=== PATIENT | female | born 1950 | race Caucasian/White ===

== ENCOUNTER 2016-09-10 16:24 | Inpatient (IN) | payer MEDICARE, OTHER ==
[~2016-09-10] VITALS: Ht 162.6 cm; Wt 78.0 kg
[~2016-09-10 16:24] MED LIST: BACTDS PO; CEPH500C PO
[2016-09-10] MEDS ORDERED: CARV6.2579 PO (17:42)
[2016-09-10] MEDS ORDERED: LOSA50TA6 PO (17:42)
--- NOTE | 2016-09-10 18:15 | ERA ---
ER Documentation Chief Complaint Date/Time DATE: 09/10/16 TIME: 18:13 Chief Complaint SENT BY PMD FOR HYPERKALEMIA , CREATININE ELEVATION HPI Patient is a 65-year-old female who was sent from her primary care doctor's office for hyperkalemia and renal failure. Patient states that she is asymptomatic. She denies any chest pain, palpitations, shortness of breath, dysuria, hematuria, anuria. She denies any recent fever, nausea, vomiting, or itching. She states she is urinating without any complaints. The remainder review systems are negative. ROS All systems reviewed and are negative except as per history of present illness. Medications Home Meds Reported Medications Carvedilol* (Carvedilol*) 6.25 Mg Tablet, 6.25 MG PO BID, #60 TAB 09/10/16 Losartan Potassium* (Losartan Potassium*) 50 Mg Tablet, 50 MG PO DAILY, TAB 09/10/16 Discontinued Scripts Cephalexin* (Cephalexin*) 500 Mg Capsule, 500 MG PO Q6, #28 CAP Prov:SHANELLE MACIEL PA-C 01/21/16 Sulfamethoxazole-Trimethoprim* (Bactrim* DS) 800-160 Mg Tab, 1 TAB PO BID for 7 Days, TAB Prov:SHANELLE MACIEL PA-C 01/21/16 Allergies Allergies: Coded Allergies: No Known Allergy (Unverified , 09/10/16) PMhx/Soc Hx Alcohol Use: No Hx Substance Use: No Hx Tobacco Use: No Smoking Status: Never smoker FmHx Family History: coronary disease, diabetes Physical Exam Vitals Vital Signs Date Time Temp Pulse Resp B/P Pulse Ox O2 Delivery O2 Flow Rate FiO2 09/10/16 18:20 98.1 62 18 160/72 100 Room Air 09/10/16 17:57 Nasal Cannula 2 09/10/16 16:30 98.1 59 18 175/76 100 Physical Exam Const: [] Well-developed well-nourished female sitting on the bed no acute distress Head: Atraumatic normocephalic Eyes: Normal Conjunctiva ENT: Normal External Ears, Nose and Mouth. Neck: Full range of motion..~ No meningismus. Resp: Clear to auscultation bilaterally Cardio: Regular rate and rhythm, no murmurs Abd: Soft, non tender, non distended. Normal bowel sounds, no flank pain Skin: No petechiae or rashes Back: No midline or flank tenderness Ext: No cyanosis, or edema Neur: Awake and alert oriented 3, GCS of 15 Psych: Normal Mood and Affect Result Diagram: 09/10/16180409/10/161804 Results 24 hrs Laboratory Tests Test 09/10/16 18:05 09/10/16 18:20 Activated Partial Thromboplast Time 27.2Sec Alanine Aminotransferase (ALT/SGPT) 35IU/L Albumin 3.9g/dl Albumin/Globulin Ratio 1.25 Alkaline Phosphatase 99IU/L Anion Gap 17 Aspartate Amino Transf (AST/SGOT) 24IU/L Basophils # 0.010^3/ul Basophils % 0.3% Blood Urea Nitrogen 62mg/dl Calcium Level 8.5mg/dl Carbon Dioxide Level 18mmol/L Chloride Level 112mmol/L Creatinine 3.20mg/dl Direct Bilirubin 0.00mg/dl Eosinophils # 0.210^3/ul Eosinophils % 3.6% Globulin 3.10g/dl Glucose Level 107mg/dl Hematocrit 30.4% Hemoglobin 9.6g/dl INR International Normalized Ratio 0.94 Indirect Bilirubin 0.1mg/dl Lymphocytes # 1.410^3/ul Lymphocytes % 23.3% Mean Corpuscular Hemoglobin 29.6pg Mean Corpuscular Hemoglobin Concent 31.6g/dl Mean Corpuscular Volume 93.8fl Mean Platelet Volume 10.8fl Monocytes # 0.310^3/ul Monocytes % 4.3% Neutrophils # 3.910^3/ul Neutrophils % 68.2% Nucleated Red Blood Cells # 0.010^3/ul Nucleated Red Blood Cells % 0.0/100WBC Platelet Count 09891^3/UL Potassium Level 6.1mmol/L Prothrombin Time 12.6Sec Prothrombin Time Ratio 1.0 Red Blood Count 3.2410^6/ul Red Cell Distribution Width 13.8% Sodium Level 141mmol/L Total Bilirubin 0.1mg/dl Total Protein 7.0g/dl White Blood Count 5.810^3/ul Urine Bacteria FEW Urine Bilirubin NEGATIVE Urine Clarity CLEAR Urine Color LT. YELLOW Urine Epithelial Cells FEW Urine Glucose NEGATIVE% Urine Hemoglobin TRACE Urine Ketones NEGATIVE Urine Leukocyte Esterase NEGATIVE Urine Microscopic RBC 0-2/HPF Urine Microscopic WBC 0-2/HPF Urine Nitrite NEGATIVE Urine Specific [place] 1.020 Urine Total Protein 2+ Urine Urobilinogen 0.2 E.U./dL Urine pH 5.5 Current Medications Medications (Trade) Dose Ordered Sig/Candace Route PRN Reason Start Time Stop Time Status Last Admin Dose Admin Calcium Chloride (Ca Chloride 10% Syg) 1,000 mg ONCE ONCE IV 09/10/16 19:00 09/10/16 19:01 DC 09/10/16 19:06 Dextrose (D50w Syringe) 50 ml ONCE ONCE IV 09/10/16 19:00 09/10/16 19:01 DC 09/10/16 19:06 Insulin Human Regular (Humulin R) 10 unit ONCE ONCE IV 09/10/16 19:00 09/10/16 19:01 DC 09/10/16 19:08 Sodium Bicarbonate (Na Bicarb 8.4% Syg) 50 ml ONCE ONCE IV 09/10/16 19:00 09/10/16 19:01 DC 09/10/16 19:06 Sodium Polystyrene Sulfonate (Kayexalate) 30 gm ONCE ONCE PO 09/10/16 19:00 09/10/16 19:01 DC 09/10/16 19:06 Procedures/MDM Differential includes but is not limited to lab error, renal failure, hyperkalemia EKG: Rate/Rhythm: Normal sinus rhythm at 60 bpm QRS, ST, T-waves: No changes consistent w/ acute ischemia Impression: No evidence of ischemia or arrhythmia Patient's lab work has returned and is consistent with renal failure and hyperkalemia. I have ordered medications to treat her hyperkalemia temporarily. I have consulted Dr. Spencer to admit her to the hospital. 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
[2016-09-10 18:23] LABS: ADD SCAN DIFF NO; BASOPHILS % 0.3 % (0.0-2.0); EOSINOPHILS # 0.2 10^3/ul (0.0-0.5); EOSINOPHILS % 3.6 % (0.0-7.0); HEMATOCRIT 30.4 % (37.0-47.0); HEMOGLOBIN 9.6 g/dl (12.0-16.0); LYMPHOCYTES # 1.4 10^3/ul (0.8-2.9); LYMPHOCYTES % 23.3 % (15.0-51.0); MEAN CORPUSCULAR HEMOGLOBIN 29.6 pg (29.0-33.0); MEAN CORPUSCULAR HGB CONC 31.6 g/dl (32.0-37.0); MEAN CORPUSCULAR VOLUME 93.8 fl (82.0-101.0); MEAN PLATELET VOLUME 10.8 fl (7.4-10.4); MONOCYTE # 0.3 10^3/ul (0.3-0.9); MONOCYTES % 4.3 % (0.0-11.0); NEUTROPHIL # 3.9 10^3/ul (1.6-7.5); NEUTROPHILS % 68.2 % (39.0-77.0); PLATELET COUNT 144 10^3/UL (140-415); RED BLOOD COUNT 3.24 10^6/ul (4.20-5.40); RED CELL DISTRIBUTION WIDTH 13.8 % (11.5-14.5); WHITE BLOOD COUNT 5.8 10^3/ul (4.8-10.8)
[2016-09-10 18:30] LABS: ADD UMIC YES; URINE BILIRUBIN (Dip) NEGATIVE (NEGATIVE); URINE BLOOD (Dip) TRACE (NEGATIVE); URINE COLOR LT. YELLOW (YELLOW); URINE GLUCOSE (Dip) NEGATIVE (NEGATIVE); URINE KETONES (Dip) NEGATIVE (NEGATIVE); URINE LEUKOCYTE ESTERASE (Dip) NEGATIVE (NEGATIVE); URINE NITRITE (Dip) NEGATIVE (NEGATIVE); URINE TOTAL PROTEIN (Dip) 2+ (NEGATIVE); URINE UROBILINOGEN (Dip) 0.2 E.U./dL (0.1-1.0)
[2016-09-10 18:36] LABS: ALBUMIN 3.9 g/dl (3.3-4.9)
[2016-09-10 18:39] LABS: BILIRUBIN,INDIRECT 0.1 mg/dl (0-1.1); BILIRUBIN,TOTAL 0.1 mg/dl (0.2-1.3); CREATININE 3.2 mg/dl (0.44-1.00)
[2016-09-10 18:40] LABS: CALCIUM 8.5 mg/dl (8.4-10.2)
[2016-09-10 18:41] LABS: INR 0.94; PARTIAL THROMBOPLASTIN TIME 27.2 Sec (25.0-35.0); PROTIME 12.6 Sec (12.2-14.2)
[2016-09-10 18:43] LABS: ALBUMIN/GLOBULIN RATIO 1.25; POTASSIUM 6.1 mmol/L (3.5-5.1)
[2016-09-10 18:44] LABS: BACTERIA,URINE FEW; URINE RBCS 0-2 /HPF (0)
[2016-09-10] MEDS ORDERED: NA BICARBONATE 8.4% 50 ML SYG IV ONE (19:00)
[2016-09-10] MEDS ORDERED: NA POLYST SULFON 15 GM/60 ML BTL PO ONE ×2 (19:00→20:00)
[2016-09-10] MEDS ORDERED: CA CHLORIDE 10% 10 ML SYRINGE IV ONE (19:00)
[2016-09-10] MEDS ORDERED: INSULIN REGULAR, HUMAN 100 UNIT/1 ML 3ML VIAL IV ONE (19:00)
[2016-09-10] MEDS ORDERED: DEXTROSE 50% 50 ML SYRINGE IV ONE (19:00)
[2016-09-10] MEDS ORDERED: SOD CHLORIDE 0.9% 1,000 ML IV SCH (19:55)
[2016-09-10] MEDS ORDERED: NITROGLYCERIN (SL) 0.4 MG TAB SL PRN (20:00)
[2016-09-10] MEDS ORDERED: DOCUSATE SODIUM 100 MG CAP PO PRN (20:00)
[2016-09-10] MEDS ORDERED: morphine 2 MG INJ IV PRN (20:00)
[2016-09-10] MEDS ORDERED: ONDANSETRON 4 MG INJ IV PRN ×2 (20:00)
[2016-09-10] MEDS ORDERED: NACL 0.9% 3 ML SYG IV SCH (20:00)
[2016-09-10] MEDS ORDERED: hydrALAzine 20 MG INJ IV PRN (20:00)
[2016-09-10] MEDS ORDERED: LORAZEPAM 2 MG INJ IV PRN (20:00)
[2016-09-10] MEDS ORDERED: ACETAMINOPHEN 325 MG TAB PO PRN (20:00)
--- NOTE | 2016-09-10 20:07 | HP ---
Date/Time of Note Date/Time of Note DATE: 09/10/16 TIME: 19:55 Assessment/Plan VTE Prophylaxis VTE Prophylaxis Intervention: heparin Lines/Catheters [facility] Saline Lock Assessment/Plan Assessment/Plan 65 yo female with past medical history of essential hypertension, type II DM, who presents with acute hyperkalemia. 1. Hyperkalemia - 2/2 #2 - will admit the patient to telemetry, consult nephrology, give Kayexalate, recheck K+, monitor for arrhythmias 2. Acute renal failure - new onset - 2/2 to obstruction vs diabetic vs other - will obtain US kidneys, urine studies, renally adjust medications, avoid nephrotoxins 3. Essential hypertension - c/w coreg, hydralazine prn for sbp > 160, hold losartan 4. Type II DM - check hgab1c, ISS 5. Anemia of chronic disease - normocytic - check iron profile, stool occult blood, transfuse if hgb < 8 g/dL or symptomatic 6. GI ppx - pepcid po 7. DVT ppx - heparin answered all of her questions, as per clinical course. this history and physical took greater then 45 minutes to complete HPI/ROS Admit Date/Time Admit Date/Time 09/10/2016, 7:59 pm Hx of Present Illness 65 yo female with past medical history of essential hypertension, type II DM, who presents with acute hyperkalemia. The patient went to see her primary care physician, at [facility] - and laboratory studies completed. Subsequently received a phone call for abnormal labs, and was told to come to the ED here at [facility] for further evaluation and treatment. Otherwise denies any chest pain, shortness of breath, fevers/chills, nausea/vomiting/diarrhea/constipation, headaches, urinary/bowel irregularities, hematuria/dysuria/or increased frequency, no dizziness or other constitutional symptoms. ED course: received potassium lowering medications ROS 14 point review of systems completed, please refer to HPI for any positive findings PMH/Family/Social Past Medical History Medical History: diabetes, hypertension Past Surgical History right occipital abscess I and D Past Surgical Hx: cholecystectomy Family History Significant Family History: cancer (sister from ovarian CA) Social History Alcohol Use: none Smoking Status: Former smoker Drug Use: none Exam/Review of Systems Vital Signs Vitals Vital Signs Date Time Temp Pulse Resp B/P Pulse Ox O2 Delivery O2 Flow Rate FiO2 09/10/16 18:20 98.1 62 18 160/72 100 Room Air 09/10/16 17:57 2 Exam Exam Gen Tracee: NAD, AAOx4 HEENT: NC/AT, PERRLA, EOMI, no pharyngeal erythema, no tonsillar exudates, no lymphadenopathy, no JVD, no carotid bruits NECK: supple, no thyromegaly THORAX: symmetrical, no obvious deformities CV: S1S2, RRR, no M/G/R Lungs: CTAB no W/C/R/R Abd: soft, NT/ND, +BS, no rebound, no guarding, neg HSM EXT: no edema, no ecchymosis, no clubbing, FROM Neuro: CN II-XII grossly intact, no focal deficits Psych: good mentation, alert and oriented, good mood and affect Skin: C/D/I Labs Result Diagram: 09/10/16180409/10/16 180 NATALIA SIMMONS MD Sep 10, 2016 20:06
[2016-09-10] MEDS ORDERED: DEXTROSE 50% 50 ML SYRINGE IV PRN ×2 (20:30)
[2016-09-10] MEDS ORDERED: GLUCOSE GEL 15 GRAM TUBE BUCCAL PRN (20:30)
[2016-09-10] MEDS ORDERED: GLUCAGON 1 MG INJ IM PRN (20:30)
[2016-09-10] MEDS ORDERED: GLUCOSE GEL 15 GRAM TUBE PO PRN ×2 (20:30)
--- NOTE | 2016-09-10 20:38 | RADRPT ---
PROCEDURE: Retroperitoneal ultrasound. CLINICAL INDICATION: Acute renal failure TECHNIQUE: Valadez scale and color doppler ultrasound images of the retroperitoneum, kidneys, urinary bladder COMPARISON: No prior studies are available for comparison. FINDINGS: Right kidney 8.8 cm in length. Mild right cortical thinning measuring approximately 9 mm. Left kidney 9.2 cm in length. Mild left cortical thinning measuring approximately 9 mm. Renal echogenicity is upper limits of normal. No hydronephrosis. No renal calculi. 2.0 cm cyst of the left kidney is noted. Bladder: Undistended. IMPRESSION: Mild cortical thinning of both kidneys with borderline upper normal echogenicity suggestive of chron ic medical renal disease. No evidence of hydronephrosis. RPTAT: AADD .Guy Sargent MD, Date Time Electronically viewed and signed by .Guy Sargent MD, on 09/10/2016 20:37 .B/
--- NOTE | 2016-09-10 20:51 | RADRPT ---
PROCEDURE: XR Chest. CLINICAL INDICATION: Chest pain TECHNIQUE: AP Portable chest. COMPARISON: No pertinent prior examinations were submitted for comparison. FINDINGS: The cardiomediastinal silhouette is normal. The lungs are clear. The osseous structures are unrema rkable. IMPRESSION: No acute findings. RPTAT: HIKT .Jeffrey Wen MD, MD Date Time Electronically viewed and signed by .Jeffrey Wen MD, MD on 09/10/2016 20:51 .T/
[2016-09-10] MEDS ORDERED: FAMOTIDINE 20 MG TAB PO SCH (21:00)
[2016-09-10] MEDS: HEPARIN 5,000 UNIT/0.5 ML SYG SC SCH (22:13)
[2016-09-10 22:46] VITALS: TEMP 98.1
[2016-09-10 23:00] VITALS: Ht 162.6 cm; Wt 78.0 kg
[2016-09-10 23:22] VITALS: PULSE 60
[2016-09-11] VITALS (12 sets, daily range): BP systolic 113–163; BP diastolic 56–81; PULSE 53–72; RESP 16–18
[2016-09-11] MEDS: INSULIN ASPART [NOVOLOG] 3 ML PEN SC SCH ×5 (01:23→21:16)
[2016-09-11 06:24] LABS: ADD SCAN DIFF NO; BASOPHILS % 0.4 % (0.0-2.0); EOSINOPHILS # 0.2 10^3/ul (0.0-0.5); EOSINOPHILS % 3.8 % (0.0-7.0); HEMATOCRIT 28.6 % (37.0-47.0); HEMOGLOBIN 9.4 g/dl (12.0-16.0); LYMPHOCYTES # 1.5 10^3/ul (0.8-2.9); LYMPHOCYTES % 27.8 % (15.0-51.0); MEAN CORPUSCULAR HEMOGLOBIN 30.5 pg (29.0-33.0); MEAN CORPUSCULAR HGB CONC 32.9 g/dl (32.0-37.0); MEAN CORPUSCULAR VOLUME 92.9 fl (82.0-101.0); MEAN PLATELET VOLUME 10.6 fl (7.4-10.4); MONOCYTE # 0.2 10^3/ul (0.3-0.9); MONOCYTES % 4.6 % (0.0-11.0); NEUTROPHIL # 3.3 10^3/ul (1.6-7.5); NEUTROPHILS % 63.2 % (39.0-77.0); PLATELET COUNT 154 10^3/UL (140-415); RED BLOOD COUNT 3.08 10^6/ul (4.20-5.40); RED CELL DISTRIBUTION WIDTH 13.8 % (11.5-14.5); WHITE BLOOD COUNT 5.2 10^3/ul (4.8-10.8)
[2016-09-11 06:25] LABS: HAAIG REFLEX REFLEX FILED
[2016-09-11 06:58] LABS: POTASSIUM 4.5 mmol/L (3.5-5.1)
[2016-09-11 07:01] LABS: CREATININE 2.93 mg/dl (0.44-1.00)
[2016-09-11 07:02] LABS: CALCIUM 8.8 mg/dl (8.4-10.2)
--- NOTE | 2016-09-11 07:56 | CONS ---
DATE OF ADMISSION: 09/10/2016 DATE OF CONSULTATION: 09/10/2016 REASON FOR CONSULTATION: Acute kidney injury versus acute kidney injury on chronic kidney disease, acute hyperkalemia, potassium 6.1. TYPE OF CONSULTATION: Nephrology REFERRING PHYSICIAN: Marek Fierro MD HISTORY OF PRESENT ILLNESS: This is a 65-year-old female with a past medical history of hypertensio n, type 2 diabetes mellitus who was sent by her doctors because of having abnormal labs. The patien t is noted to have acute hyperkalemia with a potassium of 6.1. She also had acute kidney injury, ne w onset, which was thought secondary to obstruction versus diabetic nephropathy and the patient is g etting admitted for workup of acute kidney injury and acute hyperkalemia. The patient was hemodynam ically stable. She is getting admitted to the telemetry floor. So far the patient has had a blood pressure in the systolic 175/76. She received IV hydralazine. She has also received Kayexalate for hyperkalemia and the patient is getting admitted to the telemetry floor for further workup. REVIEW OF SYSTEMS: Positive for generalized weakness, fatigue, abnormal labs, sent by her primary c are doctor. PAST MEDICAL HISTORY: Notable for type 2 diabetes mellitus, hypertension, hyperlipidemia. PAST SURGICAL HISTORY: Right occipital abscess incision and drainage with a history of a cholecyste ctomy. FAMILY HISTORY: Significant for cancer. The patient's sister from ovarian cancer as pe r the patient. SOCIAL HISTORY: Former smoker. Currently, quit smoking. No alcohol or recreational drug use. PHYSICAL EXAMINATION: VITAL SIGNS: Temperature 98.1, heart rate 62, respiration 18, blood pressure 160/72, saturation 100 % on room air. GENERAL: Awake, alert, in no distress. HEENT: Normal. Oropharynx clear. NECK: Supple, no JVD, no lymphadenopathy. LUNGS: Clear to auscultation. No crackles, no wheezes. HEART: S1, S2, with regular rhythm, no murmur. ABDOMEN: Soft, nontender, nondistended. Bowel sounds are present. EXTREMITIES: No clubbing, cyanosis, or edema. NEUROLOGICAL: Nonfocal, intact. PSYCHIATRIC: Appropriate affect and mood. LABORATORY DATA/DIAGNOSTIC IMAGIN. WBC 5.8, hemoglobin 9.6, platelet count 144. Sodium 141, potassium 6.1, chloride 112, bicarbona te , BUN 62, creatinine 3.2, glucose 107, calcium 8.5. LFTs are normal. Albumin 3.9. Prothro mbin time 12.6, PTT 27.2, INR 0.94. Urinalysis shows trace hemoglobin, few bacteria, few epithelial cells, negative leukocyte esterase, total protein 2+. 2. Chest x-ray, 1 view, done in the emergency room shows negative. 3. Renal ultrasound done in the emergency room which revealed small size kidneys with mild cortical thinning of both kidneys consistent with medical renal disease. No evidence of hydronephrosis. IMPRESSION: This is a 65-year-old female with: 1. Acute kidney injury versus acute kidney injury on chronic kidney disease stage II to III seconda ry to diabetic nephropathy, etiology of acute kidney injury is likely secondary to obstruction versu s progression of diabetic nephropathy, versus prerenal azotemia. 2. Possible chronic kidney disease stage III secondary to diabetic nephropathy. 3. History of hypertension. 4. History of type 2 diabetes mellitus. 5. Metabolic acidosis likely secondary to chronic kidney disease. 6. Acute hyperkalemia secondary to worsening renal failure along with acute kidney injury. 7. Accelerated hypertension. PLAN: Thank you, Dr. Marek Fierro, for this consultation. The patient was seen in the emergency r oom. 1. She already received 2 doses of Kayexalate for hyperkalemia. At the time of my evaluation, the patient also received hydralazine for blood pressure control and her blood pressure came down to 160 /72. 2. Chronic kidney disease workup including urine protein, urine sodium, urine eosinophils and see l ipid panel with hemoglobin A1c has been ordered. 3. I will order a uric acid, CK, total hepatitis panel, and HIV, 4. The patient had a renal ultrasound done in the emergency room which is consistent with chronic r enal disease with small size kidneys. 5. The patient will need better glycemic control for her diabetes mellitus. 6. Hydralazine IV p.r.n. systolic blood pressure more than 150. 7. The patient was seen in the emergency room and she will be getting admitted to the telemetry shonna or by the hospitalist service. Once again, thank you, Dr. Marek Fierro, for this consultation. I will continue to follow this pat ient. Total time spent in the patient's evaluation making assessment and plan, updating the patient/family about the plan, communicating with the nursing staff is more than 60 minutes. Dictated By: PEDRO MARQUES MD, KP/TAB Conf#: [id number] DID#: [id number]
[2016-09-11 08:49] LABS: CREATINE KINASE 158 IU/L (23-200)
[2016-09-11 08:50] LABS: URIC ACID 7.7 mg/dl (3.1-7.9)
[2016-09-11 08:59] LABS: MAGNESIUM 1.7 mg/dl (1.7-2.5)
[2016-09-11] MEDS: ASPIRIN 81 MG TAB PO SCH (09:01)
[2016-09-11] MEDS: FAMOTIDINE 20 MG TAB PO SCH (09:02)
[2016-09-11] MEDS: HEPARIN 5,000 UNIT/0.5 ML SYG SC SCH ×2 (09:11→21:13)
[2016-09-11 09:30] LABS: THYROID STIMULATING HORMONE 1.45 MIU/L (0.465-4.680)
[2016-09-11 09:33] LABS: IRON 110 ug/dl (35-150)
[2016-09-11 09:41] LABS: HEPATITIS B CORE ANTIBODY NEGATIVE (NEGATIVE)
[2016-09-11 09:43] LABS: TOTAL IRON BINDING CAPACITY 370 ug/dl (241-421)
[2016-09-11 09:43] LABS: CK-MB 3.93 ng/ml (0.0-2.4)
[2016-09-11 09:46] LABS: TROPONIN-I 0.013 ng/ml (0.00-0.12)
--- NOTE | 2016-09-11 11:13 | PN ---
Date/Time of Note Date/Time of Note DATE: 09/11/16 TIME: 11:06 Assessment/Plan VTE Prophylaxis VTE Prophylaxis Intervention: heparin Lines/Catheters IV [facility] Saline Lock Urinary Cath still in place: No Assessment/Plan Assessment/Plan 65 yo female with past medical history of essential hypertension, type II DM, who presents with acute hyperkalemia. 1. Hyperkalemia - 2/2 #2 - resolved 2. Acute renal failure - new onset - 2/2 to obstruction vs diabetic vs other 3. Essential hypertension 4. Type II DM - Hba1c: 7.1 5. Anemia of kidney disease - normocytic - 6. Underlying CKD likely from DM and HTN nephropathy PLAN: * Continue current care plan and hydration * Continue current diabetic and hypertensive regimen * Continue to hold ACEi / ARBs / appreciate nephrology's prompt input / Renally dose all meds * Continue serial labs and close monitoring * Further evaluation and treatment will be based on clinical course PROPHYLAXIS: Pepcid / heparin Subjective 24 Hr Interval Summary Free Text/Dictation feels better no new complaints Exam/Review of Systems Vital Signs Vitals Vital Signs Date Time Temp Pulse Resp B/P Pulse Ox O2 Delivery O2 Flow Rate FiO2 09/11/16 08:41 97.6 67 18 113/56 98 09/10/16 22:46 Room Air 09/10/16 17:57 2 Intake and Output 09/10/16 09/10/16 09/11/16 15:00 23:00 07:00 Intake Total 700 ml Balance 700 ml Exam GENERAL: Patient is alert, oriented x 3, in no apparent distress; does not appear acutely or chronically ill. Patient is able to sit up unassisted.Patient makes good eye contact, is conversant, interactive, coherent. Patient appears calm and comfortable and is able to follow commands. HEENT: Oropharynx is clear. There is no carotid bruit, no masses. Patient's pupils are equal, round and reactive to light bilaterally. Extraocular motions are intact. There is no scleral icterus. There is no facial asymmetry. NECK: Supple. LUNGS: Clear to auscultation bilaterally with good air entry. No Wheezes or crackles. HEART: S1, S2. No murmur, gallops or rubs. Regular rate and rhythm. ABDOMEN: Soft, nontender. Normoactive bowel sounds. There are no stigmata of chronic liver disease. BACK: no costovertebral angle tenderness. GENITOURINARY: Deferred. EXTREMITIES: No edema. There is no cyanosis, clubbing. There are 2+ pulses bilaterally distally. NEUROLOGIC: The patient has no lateralizing signs. Cranial nerves II-XII are intact. SKIN: Otherwise, unremarkable. Results Result Diagram: 09/11/16 0557 09/11/16 0557 Results 24 hrs Laboratory Tests Test 09/10/16 18:05 09/10/16 18:20 09/11/16 01:18 09/11/16 05:57 Activated Partial Thromboplast Time 27.2 Alanine Aminotransferase (ALT/SGPT) 35 Albumin 3.9 Albumin/Globulin Ratio 1.25 Alkaline Phosphatase 99 Anion Gap 17 H 16 Aspartate Amino Transf (AST/SGOT) 24 Basophils # 0.0 0.0 Basophils % 0.3 0.4 Blood Urea Nitrogen 62 H 59 H Calcium Level 8.5 8.8 Carbon Dioxide Level 18 L 21 Chloride Level 112 H 112 H Creatinine 3.20 H 2.93 H Direct Bilirubin 0.00 Eosinophils # 0.2 0.2 Eosinophils % 3.6 3.8 Globulin 3.10 Glucose Level 107 113 Hematocrit 30.4 L 28.6 L Hemoglobin 9.6 L 9.4 L INR International Normalized Ratio 0.94 Indirect Bilirubin 0.1 Lymphocytes # 1.4 1.5 Lymphocytes % 23.3 27.8 Mean Corpuscular Hemoglobin 29.6 30.5 Mean Corpuscular Hemoglobin Concent 31.6 L 32.9 Mean Corpuscular Volume 93.8 92.9 Mean Platelet Volume 10.8 H 10.6 H Monocytes # 0.3 0.2 L Monocytes % 4.3 4.6 Neutrophils # 3.9 3.3 Neutrophils % 68.2 63.2 Nucleated Red Blood Cells # 0.0 0.0 Nucleated Red Blood Cells % 0.0 0.0 Platelet Count 144 154 Potassium Level 6.1 *H 4.5 Prothrombin Time 12.6 Prothrombin Time Ratio 1.0 Red Blood Count 3.24 L 3.08 L Red Cell Distribution Width 13.8 13.8 Sodium Level 141 144 Total Bilirubin 0.1 L Total Protein 7.0 White Blood Count 5.8 5.2 Urine Bacteria FEW Urine Bilirubin NEGATIVE Urine Clarity CLEAR Urine Color LT. YELLOW Urine Epithelial Cells FEW Urine Glucose NEGATIVE Urine Hemoglobin TRACE Urine Ketones NEGATIVE Urine Leukocyte Esterase NEGATIVE Urine Microscopic RBC 0-2 Urine Microscopic WBC 0-2 Urine Nitrite NEGATIVE Urine Specific [place] 1.020 Urine Total Protein 2+ H Urine Urobilinogen 0.2 E.U./dL Urine pH 5.5 Bedside Glucose 203 Cholesterol Level 153 Cholesterol/HDL Ratio 2.0 Creatine Kinase 158 Creatine Kinase Index 2.5 Creatinine Kinase MB (Mass) 3.93 H HDL Cholesterol 75 HIV (1&2) Antibody Pending Hemoglobin A1c 7.1 H Hepatitis B Core Total Antibody NEGATIVE Hepatitis B Surface Antigen Pending Hepatitis C Antibody Pending LDL Cholesterol, Calculated 59 Magnesium Level 1.7 Thyroid Stimulating Hormone (TSH) 1.450 Triglycerides Level 94 Troponin I 0.013 Uric Acid 7.7 Test 09/11/16 06:25 09/11/16 07:56 Iron Level 110 Osmolality 313 H Percent Iron Saturation 30 Total Iron Binding Capacity 370 Bedside Glucose 105 Medications Medications Current Medications Lorazepam (Ativan) 0.5 mg Q6H PRN IV ANXIETY; Start 09/10/16 at 20:00 Ondansetron HCl (Zofran Inj) 4 mg Q6H PRN IV NAUSEA AND/OR VOMITING; Start at 20:00 Aspirin (Aspirin) 81 mg DAILY PO Last administered on 09/11/16 09:01; Admin Dose 81 MG; Start 09/11/16 at 09:00 Nitroglycerin (Nitroglycerin (Sl Tab) 0.4 Mg) 1 tab Q5M PRN SL CHEST PAIN; Start 09/10/16 at 20:00 Acetaminophen (Tylenol Tab) 650 mg Q6H PRN PO PAIN LEVEL 1-3 OR FEVER; Start at 20:00 Morphine Sulfate (morphine) 2 mg Q4H PRN IV PAIN LEVEL 7-10; Start 09/10/16 at 20:00 Docusate Sodium (Colace) 100 mg Q12H PRN PO CONSTIPATION; Start 09/10/16 at 20: 00 Heparin Sodium (Porcine) (Heparin (5000 Units/0.5 ml)) 5,000 unit Q12 SC Last administered on 09/11/16 09:11; Admin Dose 5,000 UNIT; Start 09/10/16 at 21:00 Carvedilol (Coreg) 6.25 mg BID PO Last administered on 09/11/16 09:02; Admin Dose 6.25 MG; Start 09/10/16 at 21:00 Hydralazine HCl (Apresoline) 10 mg Q6H PRN IV sbp > 160 Last administered on 01:19; Admin Dose 10 MG; Start 09/10/16 at 20:00 Miscellaneous Information 1 ea NOTE XX ; Start 09/10/16 at 20:30 Glucose (Glutose) 15 gm Q15M PRN PO DECREASED GLUCOSE; Start 09/10/16 at 20:30 Glucose (Glutose) 22.5 gm Q15M PRN PO DECREASED GLUCOSE; Start 09/10/16 at 20: 30 Dextrose (D50w Syringe) 25 ml Q15M PRN IV DECREASED GLUCOSE; Start 09/10/16 at 20:30 Dextrose (D50w Syringe) 50 ml Q15M PRN IV DECREASED GLUCOSE; Start 09/10/16 at 20:30 Glucagon (Glucagen) 1 mg Q15M PRN IM DECREASED GLUCOSE; Start 09/10/16 at 20:30 Glucose (Glutose) 15 gm Q15M PRN BUCCAL DECREASED GLUCOSE; Start 09/10/16 at 20 :30 Famotidine (Pepcid) 20 mg DAILY PO Last administered on 09/11/16 09:02; Admin Dose 20 MG; Start 09/11/16 at 09:00 Procedures Procedures PROCEDURE: Retroperitoneal ultrasound. CLINICAL INDICATION: Acute renal failure TECHNIQUE: Valadez scale and color doppler ultrasound images of the retroperitoneum, kidneys, urinary bladder COMPARISON: No prior studies are available for comparison. FINDINGS: Right kidney 8.8 cm in length. Mild right cortical thinning measuring approximately 9 mm. Left kidney 9.2 cm in length. Mild left cortical thinning measuring approximately 9 mm. Renal echogenicity is upper limits of normal. No hydronephrosis. No renal calculi. 2.0 cm cyst of the left kidney is noted. Bladder: Undistended. IMPRESSION: Mild cortical thinning of both kidneys with borderline upper normal echogenicity suggestive of chronic medical renal disease. No evidence of hydronephrosis. RPTAT: AADD .Guy Sargent MD, MD Date Time Electronically viewed and signed by .Guy Sargent MD, on 09/10/2016 20:37 .Lidia/ MAC HEARD Sep 11, 2016 11:13
[2016-09-11] MEDS: ACETAMINOPHEN 325 MG TAB PO PRN (11:18)
--- NOTE | 2016-09-11 12:00 | CONS ---
Date/Time of Note Date/Time of Note DATE: 09/11/16 TIME: 11:58 Assessment/Plan Assessment/Plan Additional Assessment/Plan 1. Acute kidney injury on chronic kidney disease stage II to III secondary to diabetic nephropathy, etiology of acute kidney injury is likely secondary to obstruction versus progression of diabetic nephropathy, versus prerenal azotemia. 2. Possible chronic kidney disease stage III secondary to diabetic nephropathy. 3. History of hypertension. 4. History of type 2 diabetes mellitus. 5. Metabolic acidosis likely secondary to chronic kidney disease. 6. Acute hyperkalemia secondary to worsening renal failure along with acute kidney injury. 7. Accelerated hypertension. PLAN: BUN/Cr slighty improved,K normal BP stable will follow up Renal US showed medical renal disease Consultation Date/Type/Reason Admit Date/Time Sep 10, 2016 at 20:01 Initial Consult Date Aug Type of Consultation: NEPHROLOGY Reason for Consultation Acute kidney injury, Hyperkalemia Referring Provider: NATALIA SIMMONS MD 24 HR Interval Summary Free Text/Dictation S/p kayexalate yesterday, k Normal, Cr slightly improved with IVF Exam/Review of Systems Vital Signs Vitals Vital Signs Date Time Temp Pulse Resp B/P Pulse Ox O2 Delivery O2 Flow Rate FiO2 09/11/16 11:32 98.0 63 18 125/60 97 09/10/16 22:46 Room Air 09/10/16 17:57 2 Intake and Output 09/10/16 09/10/16 09/11/16 14:59 22:59 06:59 Intake Total 700 ml Balance 700 ml Exam GENERAL: Awake, alert, in no distress. HEENT: Normal. Oropharynx clear. NECK: Supple, no JVD, no lymphadenopathy. LUNGS: Clear to auscultation. No crackles, no wheezes. HEART: S1, S2, with regular rhythm, no murmur. ABDOMEN: Soft, nontender, nondistended. Bowel sounds are present. EXTREMITIES: No clubbing, cyanosis, or edema. NEUROLOGICAL: Nonfocal, intact. PSYCHIATRIC: Appropriate affect and mood. Results Result Diagram: 09/11/16 0557 09/11/16 0557 Results 24 hrs Laboratory Tests Test 09/10/16 18:05 09/10/16 18:20 09/11/16 01:18 09/11/16 05:57 Activated Partial Thromboplast Time 27.2 Alanine Aminotransferase (ALT/SGPT) 35 Albumin 3.9 Albumin/Globulin Ratio 1.25 Alkaline Phosphatase 99 Anion Gap 17 H 16 Aspartate Amino Transf (AST/SGOT) 24 Basophils # 0.0 0.0 Basophils % 0.3 0.4 Blood Urea Nitrogen 62 H 59 H Calcium Level 8.5 8.8 Carbon Dioxide Level 18 L 21 Chloride Level 112 H 112 H Creatinine 3.20 H 2.93 H Direct Bilirubin 0.00 Eosinophils # 0.2 0.2 Eosinophils % 3.6 3.8 Globulin 3.10 Glucose Level 107 113 Hematocrit 30.4 L 28.6 L Hemoglobin 9.6 L 9.4 L INR International Normalized Ratio 0.94 Indirect Bilirubin 0.1 Lymphocytes # 1.4 1.5 Lymphocytes % 23.3 27.8 Mean Corpuscular Hemoglobin 29.6 30.5 Mean Corpuscular Hemoglobin Concent 31.6 L 32.9 Mean Corpuscular Volume 93.8 92.9 Mean Platelet Volume 10.8 H 10.6 H Monocytes # 0.3 0.2 L Monocytes % 4.3 4.6 Neutrophils # 3.9 3.3 Neutrophils % 68.2 63.2 Nucleated Red Blood Cells # 0.0 0.0 Nucleated Red Blood Cells % 0.0 0.0 Platelet Count 144 154 Potassium Level 6.1 *H 4.5 Prothrombin Time 12.6 Prothrombin Time Ratio 1.0 Red Blood Count 3.24 L 3.08 L Red Cell Distribution Width 13.8 13.8 Sodium Level 141 144 Total Bilirubin 0.1 L Total Protein 7.0 White Blood Count 5.8 5.2 Urine Bacteria FEW Urine Bilirubin NEGATIVE Urine Clarity CLEAR Urine Color LT. YELLOW Urine Epithelial Cells FEW Urine Glucose NEGATIVE Urine Hemoglobin TRACE Urine Ketones NEGATIVE Urine Leukocyte Esterase NEGATIVE Urine Microscopic RBC 0-2 Urine Microscopic WBC 0-2 Urine Nitrite NEGATIVE Urine Specific [place] 1.020 Urine Total Protein 2+ H Urine Urobilinogen 0.2 E.U./dL Urine pH 5.5 Bedside Glucose 203 Cholesterol Level 153 Cholesterol/HDL Ratio 2.0 Creatine Kinase 158 Creatine Kinase Index 2.5 Creatinine Kinase MB (Mass) 3.93 H HDL Cholesterol 75 HIV (1&2) Antibody Pending Hemoglobin A1c 7.1 H Hepatitis B Core Total Antibody NEGATIVE Hepatitis B Surface Antigen Pending Hepatitis C Antibody Pending LDL Cholesterol, Calculated 59 Magnesium Level 1.7 Thyroid Stimulating Hormone (TSH) 1.450 Triglycerides Level 94 Troponin I 0.013 Uric Acid 7.7 Test 09/11/16 06:25 09/11/16 07:56 09/11/16 11:16 Iron Level 110 Osmolality 313 H Percent Iron Saturation 30 Total Iron Binding Capacity 370 Bedside Glucose 105 174 Medications Medications Current Medications Lorazepam (Ativan) 0.5 mg Q6H PRN IV ANXIETY; Start 09/10/16 at 20:00 Ondansetron HCl (Zofran Inj) 4 mg Q6H PRN IV NAUSEA AND/OR VOMITING; Start at 20:00 Aspirin (Aspirin) 81 mg DAILY PO Last administered on 09/11/16 09:01; Admin Dose 81 MG; Start 09/11/16 at 09:00 Nitroglycerin (Nitroglycerin (Sl Tab) 0.4 Mg) 1 tab Q5M PRN SL CHEST PAIN; Start 09/10/16 at 20:00 Acetaminophen (Tylenol Tab) 650 mg Q6H PRN PO PAIN LEVEL 1-3 OR FEVER Last administered on 09/11/16 11:18; Admin Dose 650 MG; Start 09/10/16 at 20:00 Morphine Sulfate (morphine) 2 mg Q4H PRN IV PAIN LEVEL 7-10; Start 09/10/16 at 20:00 Heparin Sodium (Porcine) (Heparin (5000 Units/0.5 ml)) 5,000 unit Q12 SC Last administered on 09/11/16 09:11; Admin Dose 5,000 UNIT; Start 09/10/16 at 21:00 Carvedilol (Coreg) 6.25 mg BID PO Last administered on 09/11/16 09:02; Admin Dose 6.25 MG; Start 09/10/16 at 21:00 Hydralazine HCl (Apresoline) 10 mg Q6H PRN IV sbp > 160 Last administered on 01:19; Admin Dose 10 MG; Start 09/10/16 at 20:00 Miscellaneous Information 1 ea NOTE XX ; Start 09/10/16 at 20:30 Glucose (Glutose) 15 gm Q15M PRN PO DECREASED GLUCOSE; Start 09/10/16 at 20:30 Glucose (Glutose) 22.5 gm Q15M PRN PO DECREASED GLUCOSE; Start 09/10/16 at 20: 30 Dextrose (D50w Syringe) 25 ml Q15M PRN IV DECREASED GLUCOSE; Start 09/10/16 at 20:30 Dextrose (D50w Syringe) 50 ml Q15M PRN IV DECREASED GLUCOSE; Start 09/10/16 at 20:30 Glucagon (Glucagen) 1 mg Q15M PRN IM DECREASED GLUCOSE; Start 09/10/16 at 20:30 Glucose (Glutose) 15 gm Q15M PRN BUCCAL DECREASED GLUCOSE; Start 09/10/16 at 20 :30 Famotidine (Pepcid) 20 mg DAILY PO Last administered on 09/11/16 09:02; Admin Dose 20 MG; Start 09/11/16 at 09:00 Docusate Sodium (Colace) 100 mg Q12H PO ; Start 09/11/16 at 20:00 PEDRO MARQUES MD Sep 11, 2016 12:00
[2016-09-11] MEDS: DOCUSATE SODIUM 100 MG CAP PO SCH (21:11)
[2016-09-12] VITALS (12 sets, daily range): BP systolic 139–191; BP diastolic 57–78; PULSE 51–72; RESP 16–18
[2016-09-12 07:23] LABS: ADD SCAN DIFF NO
[2016-09-12 07:32] LABS: BASOPHILS % 0.5 % (0.0-2.0); EOSINOPHILS # 0.2 10^3/ul (0.0-0.5); EOSINOPHILS % 3.7 % (0.0-7.0); HEMATOCRIT 27.4 % (37.0-47.0); HEMOGLOBIN 8.7 g/dl (12.0-16.0); LYMPHOCYTES # 1.7 10^3/ul (0.8-2.9); LYMPHOCYTES % 38.8 % (15.0-51.0); MEAN CORPUSCULAR HEMOGLOBIN 29.8 pg (29.0-33.0); MEAN CORPUSCULAR HGB CONC 31.8 g/dl (32.0-37.0); MEAN CORPUSCULAR VOLUME 93.8 fl (82.0-101.0); MEAN PLATELET VOLUME 11.2 fl (7.4-10.4); MONOCYTE # 0.2 10^3/ul (0.3-0.9); MONOCYTES % 5.1 % (0.0-11.0); NEUTROPHIL # 2.3 10^3/ul (1.6-7.5); NEUTROPHILS % 51.9 % (39.0-77.0); PLATELET COUNT 136 10^3/UL (140-415); RED BLOOD COUNT 2.92 10^6/ul (4.20-5.40); RED CELL DISTRIBUTION WIDTH 13.9 % (11.5-14.5); WHITE BLOOD COUNT 4.3 10^3/ul (4.8-10.8)
[2016-09-12 07:45] LABS: ALBUMIN 3.6 g/dl (3.3-4.9)
[2016-09-12 07:46] LABS: POTASSIUM 4.6 mmol/L (3.5-5.1)
[2016-09-12 07:48] LABS: CREATININE 3.23 mg/dl (0.44-1.00)
[2016-09-12 07:49] LABS: CALCIUM 8.3 mg/dl (8.4-10.2); MAGNESIUM 1.7 mg/dl (1.7-2.5); PHOSPHORUS 5.8 mg/dl (2.5-4.9)
[2016-09-12] MEDS: DOCUSATE SODIUM 100 MG CAP PO SCH ×2 (08:03→21:29)
[2016-09-12] MEDS: FAMOTIDINE 20 MG TAB PO SCH (08:04)
[2016-09-12] MEDS: ASPIRIN 81 MG TAB PO SCH (08:04)
[2016-09-12] MEDS: INSULIN ASPART [NOVOLOG] 3 ML PEN SC SCH ×4 (08:07→21:00)
[2016-09-12] MEDS: HEPARIN 5,000 UNIT/0.5 ML SYG SC SCH ×2 (08:21→21:32)
--- NOTE | 2016-09-12 11:28 | CONS ---
Date/Time of Note Date/Time of Note DATE: 09/12/16 TIME: 11:20 Assessment/Plan Assessment/Plan Additional Assessment/Plan 1. Acute kidney injury on chronic kidney disease stage II to III secondary to diabetic nephropathy, etiology of acute kidney injury is likely secondary to obstruction versus progression of diabetic nephropathy, versus prerenal azotemia. 2. Possible chronic kidney disease stage III secondary to diabetic nephropathy. 3. History of hypertension. 4. History of type 2 diabetes mellitus. 5. Metabolic acidosis likely secondary to chronic kidney disease. 6. Acute hyperkalemia secondary to worsening renal failure along with acute kidney injury. 7. Accelerated hypertension. PLAN: BUN/Cr slightly get worse ,K normal diet has been changed to renal diet will give 0.9 Ns at 70 cc/hr x 1 liter then reassess Calcium acetate 667mg TID with meal Renal US showed medical renal disease will follow up discussed with patient at bedside Consultation Date/Type/Reason Admit Date/Time Sep 10, 2016 at 20:01 Initial Consult Date Aug Type of Consultation: NEPHROLOGY Reason for Consultation acute kidney injury, Hyperkalemia Referring Provider: NATALIA SIMMONS MD 24 HR Interval Summary Free Text/Dictation Pt remained stable, BUN/Cr get worse Exam/Review of Systems Vital Signs Vitals Vital Signs Date Time Temp Pulse Resp B/P Pulse Ox O2 Delivery O2 Flow Rate FiO2 09/12/16 08:12 56 09/12/16 07:33 98.2 18 139/67 98 09/12/16 04:00 Room Air 09/10/16 17:57 2 Intake and Output 09/11/16 09/11/16 09/12/16 15:00 23:00 07:00 Intake Total 700 ml 400 ml Balance 700 ml 400 ml Exam GENERAL: Awake, alert, in no distress. HEENT: Normal. Oropharynx clear. NECK: Supple, no JVD, no lymphadenopathy. LUNGS: Clear to auscultation. No crackles, no wheezes. HEART: S1, S2, with regular rhythm, no murmur. ABDOMEN: Soft, nontender, nondistended. Bowel sounds are present. EXTREMITIES: No clubbing, cyanosis, or edema. NEUROLOGICAL: Nonfocal, intact. PSYCHIATRIC: Appropriate affect and mood. Results Result Diagram: 09/12/16 0603 09/12/16 0603 Results 24 hrs Laboratory Tests Test 09/11/16 17:42 09/11/16 20:40 09/12/16 02:00 09/12/16 06:03 Bedside Glucose 196 207 167 Albumin 3.6 Anion Gap 17 H Basophils # 0.0 Basophils % 0.5 Blood Urea Nitrogen 64 H Calcium Level 8.3 L Carbon Dioxide Level 21 Chloride Level 110 Creatinine 3.23 H Eosinophils # 0.2 Eosinophils % 3.7 Glucose Level 118 Hematocrit 27.4 L Hemoglobin 8.7 L Lymphocytes # 1.7 Lymphocytes % 38.8 Magnesium Level 1.7 Mean Corpuscular Hemoglobin 29.8 Mean Corpuscular Hemoglobin Concent 31.8 L Mean Corpuscular Volume 93.8 Mean Platelet Volume 11.2 H Monocytes # 0.2 L Monocytes % 5.1 Neutrophils # 2.3 Neutrophils % 51.9 Nucleated Red Blood Cells # 0.0 Nucleated Red Blood Cells % 0.0 Phosphorus Level 5.8 H Platelet Count 136 L Potassium Level 4.6 Red Blood Count 2.92 L Red Cell Distribution Width 13.9 Sodium Level 143 White Blood Count 4.3 L Test 09/12/16 07:59 Bedside Glucose 150 Medications Medications Current Medications Lorazepam (Ativan) 0.5 mg Q6H PRN IV ANXIETY; Start 09/10/16 at 20:00 Ondansetron HCl (Zofran Inj) 4 mg Q6H PRN IV NAUSEA AND/OR VOMITING; Start at 20:00 Aspirin (Aspirin) 81 mg DAILY PO Last administered on 09/12/16 08:04; Admin Dose 81 MG; Start 09/11/16 at 09:00 Nitroglycerin (Nitroglycerin (Sl Tab) 0.4 Mg) 1 tab Q5M PRN SL CHEST PAIN; Start 09/10/16 at 20:00 Acetaminophen (Tylenol Tab) 650 mg Q6H PRN PO PAIN LEVEL 1-3 OR FEVER Last administered on 09/11/16 11:18; Admin Dose 650 MG; Start 09/10/16 at 20:00 Morphine Sulfate (morphine) 2 mg Q4H PRN IV PAIN LEVEL 7-10; Start 09/10/16 at 20:00 Heparin Sodium (Porcine) (Heparin (5000 Units/0.5 ml)) 5,000 unit Q12 SC Last administered on 09/12/16 08:21; Admin Dose 5,000 UNIT; Start 09/10/16 at 21:00 Carvedilol (Coreg) 6.25 mg BID PO Last administered on 09/12/16 08:04; Admin Dose 6.25 MG; Start 09/10/16 at 21:00 Hydralazine HCl (Apresoline) 10 mg Q6H PRN IV sbp > 160 Last administered on 01:19; Admin Dose 10 MG; Start 09/10/16 at 20:00 Miscellaneous Information 1 ea NOTE XX ; Start 09/10/16 at 20:30 Glucose (Glutose) 15 gm Q15M PRN PO DECREASED GLUCOSE; Start 09/10/16 at 20:30 Glucose (Glutose) 22.5 gm Q15M PRN PO DECREASED GLUCOSE; Start 09/10/16 at 20: 30 Dextrose (D50w Syringe) 25 ml Q15M PRN IV DECREASED GLUCOSE; Start 09/10/16 at 20:30 Dextrose (D50w Syringe) 50 ml Q15M PRN IV DECREASED GLUCOSE; Start 09/10/16 at 20:30 Glucagon (Glucagen) 1 mg Q15M PRN IM DECREASED GLUCOSE; Start 09/10/16 at 20:30 Glucose (Glutose) 15 gm Q15M PRN BUCCAL DECREASED GLUCOSE; Start 09/10/16 at 20 :30 Famotidine (Pepcid) 20 mg DAILY PO Last administered on 09/12/16 08:04; Admin Dose 20 MG; Start 09/11/16 at 09:00 Docusate Sodium (Colace) 100 mg Q12H PO Last administered on 09/12/16 08:03; Admin Dose 100 MG; Start 09/11/16 at 20:00 PEDRO MARQUES MD Sep 12, 2016 11:28
[2016-09-12] MEDS ORDERED: SOD CHLORIDE 0.9% 1,000 ML IV SCH (11:30)
[2016-09-12] MEDS: CALCIUM ACETATE 667 MG CAP PO SCH ×2 (11:45→17:30)
--- NOTE | 2016-09-12 12:13 | PN ---
Date/Time of Note Date/Time of Note DATE: 09/12/16 TIME: 12:10 Assessment/Plan VTE Prophylaxis VTE Prophylaxis Intervention: heparin Lines/Catheters IV [facility] Urinary Cath still in place: No Assessment/Plan Chief Complaint/Hosp Course Assessment/Plan 1. Hyperkalemia -likely secondary to acute on chronic renal insufficiency, resolved, continue to monitor 2. Acute on chronic renal failure -likely diabetic nephropathy , nephrology has been consulted, with worsening of renal panel since yesterday 3. Essential hypertension -moderately controlled, continue medical management 4. Type II DM - Hba1c: 7.1, continue insulin sliding scale, low-carb diet, placed the patient on Januvia, not a candidate for metformin secondary to renal insufficiency 5. Anemia of kidney disease - normocytic - 6. Underlying CKD likely from DM and HTN nephropathy, Continue to hold ACEi / ARBs / appreciate nephrology's prompt input / Renally dose all meds PLAN: * Continue current care plan and hydration * Continue current diabetic and hypertensive regimen * Further evaluation and treatment will be based on clinical course PROPHYLAXIS: Pepcid / heparin Problems: Subjective 24 Hr Interval Summary Free Text/Dictation Patient denies of any chest pain or shortness of breath No nausea vomiting diarrhea Tolerating oral intake Creatinine/renal panel has worsened since yesterday Exam/Review of Systems Vital Signs Vitals Vital Signs Date Time Temp Pulse Resp B/P Pulse Ox O2 Delivery O2 Flow Rate FiO2 09/12/16 11:33 98.0 68 18 155/57 98 09/12/16 04:00 Room Air 09/10/16 17:57 2 Intake and Output 09/11/16 09/11/16 09/12/16 15:00 23:00 07:00 Intake Total 700 ml 400 ml Balance 700 ml 400 ml Exam General: The patient is well-developed, Not in acute distress. HEENT: Atraumatic, normocephalic. The pupils are equal and round . Neck: Supple with full range of motion. Chest: Normal expansion of the thorax during inspiration Lungs: Clear to auscultation bilaterally Heart: Normal S1-S2, Regular rhythm and rate. Abdomen: Soft , nontender, nondistended , bowel sounds are present. Extremities: Normal to inspection, no edema no cyanosis Neurologic: Normal mental status,The patient is awake, alert and oriented . Results Result Diagram: 09/12/16 0603 09/12/16 0603 Results 24 hrs Laboratory Tests Test 09/11/16 17:42 09/11/16 20:40 09/12/16 02:00 09/12/16 06:03 Bedside Glucose 196 207 167 Albumin 3.6 Anion Gap 17 H Basophils # 0.0 Basophils % 0.5 Blood Urea Nitrogen 64 H Calcium Level 8.3 L Carbon Dioxide Level 21 Chloride Level 110 Creatinine 3.23 H Eosinophils # 0.2 Eosinophils % 3.7 Glucose Level 118 Hematocrit 27.4 L Hemoglobin 8.7 L Lymphocytes # 1.7 Lymphocytes % 38.8 Magnesium Level 1.7 Mean Corpuscular Hemoglobin 29.8 Mean Corpuscular Hemoglobin Concent 31.8 L Mean Corpuscular Volume 93.8 Mean Platelet Volume 11.2 H Monocytes # 0.2 L Monocytes % 5.1 Neutrophils # 2.3 Neutrophils % 51.9 Nucleated Red Blood Cells # 0.0 Nucleated Red Blood Cells % 0.0 Phosphorus Level 5.8 H Platelet Count 136 L Potassium Level 4.6 Red Blood Count 2.92 L Red Cell Distribution Width 13.9 Sodium Level 143 White Blood Count 4.3 L Test 09/12/16 07:59 09/12/16 11:44 Bedside Glucose 150 248 H Medications Medications Current Medications Lorazepam (Ativan) 0.5 mg Q6H PRN IV ANXIETY; Start 09/10/16 at 20:00 Ondansetron HCl (Zofran Inj) 4 mg Q6H PRN IV NAUSEA AND/OR VOMITING; Start at 20:00 Aspirin (Aspirin) 81 mg DAILY PO Last administered on 09/12/16 08:04; Admin Dose 81 MG; Start 09/11/16 at 09:00 Nitroglycerin (Nitroglycerin (Sl Tab) 0.4 Mg) 1 tab Q5M PRN SL CHEST PAIN; Start 09/10/16 at 20:00 Acetaminophen (Tylenol Tab) 650 mg Q6H PRN PO PAIN LEVEL 1-3 OR FEVER Last administered on 09/11/16 11:18; Admin Dose 650 MG; Start 09/10/16 at 20:00 Morphine Sulfate (morphine) 2 mg Q4H PRN IV PAIN LEVEL 7-10; Start 09/10/16 at 20:00 Heparin Sodium (Porcine) (Heparin (5000 Units/0.5 ml)) 5,000 unit Q12 SC Last administered on 09/12/16 08:21; Admin Dose 5,000 UNIT; Start 09/10/16 at 21:00 Carvedilol (Coreg) 6.25 mg BID PO Last administered on 09/12/16 08:04; Admin Dose 6.25 MG; Start 09/10/16 at 21:00 Hydralazine HCl (Apresoline) 10 mg Q6H PRN IV sbp > 160 Last administered on 01:19; Admin Dose 10 MG; Start 09/10/16 at 20:00 Miscellaneous Information 1 ea NOTE XX ; Start 09/10/16 at 20:30 Glucose (Glutose) 15 gm Q15M PRN PO DECREASED GLUCOSE; Start 09/10/16 at 20:30 Glucose (Glutose) 22.5 gm Q15M PRN PO DECREASED GLUCOSE; Start 09/10/16 at 20: 30 Dextrose (D50w Syringe) 25 ml Q15M PRN IV DECREASED GLUCOSE; Start 09/10/16 at 20:30 Dextrose (D50w Syringe) 50 ml Q15M PRN IV DECREASED GLUCOSE; Start 09/10/16 at 20:30 Glucagon (Glucagen) 1 mg Q15M PRN IM DECREASED GLUCOSE; Start 09/10/16 at 20:30 Glucose (Glutose) 15 gm Q15M PRN BUCCAL DECREASED GLUCOSE; Start 09/10/16 at 20 :30 Famotidine (Pepcid) 20 mg DAILY PO Last administered on 09/12/16 08:04; Admin Dose 20 MG; Start 09/11/16 at 09:00 Docusate Sodium 100 mg 100 mg Q12H PO Last administered on 09/12/16 08:03; Admin Dose 100 MG; Start 09/11/16 at 20:00 Sodium Chloride (NS) 1,000 ml @ 70 mls/hr [id number] IV Last administered on 09/12 11:45; Admin Dose 70 MLS/HR; Start 09/12/16 at 11:30; Stop 09/13/16 at 01: 47 SRI WEBSTER MD Sep 12, 2016 12:13
[2016-09-12] MEDS: ACETAMINOPHEN 325 MG TAB PO PRN (17:40)
[2016-09-13] VITALS (7 sets, daily range): BP systolic 160–184; BP diastolic 70–77; PULSE 49–61; RESP 18
[2016-09-13 06:52] LABS: ADD SCAN DIFF NO
[2016-09-13 07:05] LABS: BASOPHILS % 0.3 % (0.0-2.0); EOSINOPHILS # 0.2 10^3/ul (0.0-0.5); HEMATOCRIT 25.6 % (37.0-47.0); HEMOGLOBIN 8.4 g/dl (12.0-16.0); LYMPHOCYTES # 1.3 10^3/ul (0.8-2.9); LYMPHOCYTES % 32.2 % (15.0-51.0); MEAN CORPUSCULAR HEMOGLOBIN 30.3 pg (29.0-33.0); MEAN CORPUSCULAR HGB CONC 32.8 g/dl (32.0-37.0); MEAN CORPUSCULAR VOLUME 92.4 fl (82.0-101.0); MEAN PLATELET VOLUME 11.2 fl (7.4-10.4); MONOCYTE # 0.2 10^3/ul (0.3-0.9); NEUTROPHIL # 2.3 10^3/ul (1.6-7.5); NEUTROPHILS % 58.2 % (39.0-77.0); PLATELET COUNT 118 10^3/UL (140-415); RED BLOOD COUNT 2.77 10^6/ul (4.20-5.40); RED CELL DISTRIBUTION WIDTH 13.3 % (11.5-14.5)
[2016-09-13 07:18] LABS: ALBUMIN 3.3 g/dl (3.3-4.9)
[2016-09-13 07:20] LABS: CREATININE 2.98 mg/dl (0.44-1.00)
[2016-09-13 07:22] LABS: CALCIUM 8.3 mg/dl (8.4-10.2)
[2016-09-13] MEDS: DOCUSATE SODIUM 100 MG CAP PO SCH (08:40)
[2016-09-13] MEDS: ASPIRIN 81 MG TAB PO SCH (08:41)
[2016-09-13] MEDS: FAMOTIDINE 20 MG TAB PO SCH (08:41)
[2016-09-13] MEDS: CALCIUM ACETATE 667 MG CAP PO SCH ×2 (08:47→12:48)
[2016-09-13] MEDS: INSULIN ASPART [NOVOLOG] 3 ML PEN SC SCH ×2 (08:49→12:51)
[2016-09-13] MEDS: HEPARIN 5,000 UNIT/0.5 ML SYG SC SCH (10:20)
--- NOTE | 2016-09-13 10:54 | PDOCDIS ---
Discharge Instructions CONDITION Patient Condition: Good HOME CARE INSTRUCTIONS: Special Diet: RENAL/ Low carb diet ACTIVITY: Activity Restrictions: No Restrictions FOLLOW UP/APPOINTMENTS Appointments Follow up with PCP in one week Follow up with nephrology as out-pt SRI WEBSTER MD Sep 13, 2016 10:54
[2016-09-13] MEDS ORDERED: AMLO5TAB4 PO (11:04)
[2016-09-13] MEDS ORDERED: CARV6.2579 PO (11:04)
[2016-09-13] MEDS ORDERED: SITA50TA2 PO (11:04)
[2016-09-13] MEDS ORDERED: CALC667C PO (11:04)
[2016-09-13] MEDS ORDERED: DOCU-216 PO (11:04)
[2016-09-13] MEDS ORDERED: ASPI81TA3 PO (11:04)
[2016-09-13] MEDS ORDERED: AMLODIPINE 5 MG TAB PO ONE (11:30)
[2016-09-13] MEDS ORDERED: AMLODIPINE 5 MG TAB PO SCH (12:00)
[2016-09-13] MEDS ORDERED: LINAGLIPTIN 5 MG TABLET PO SCH (12:45)
--- NOTE | 2016-09-13 17:39 | CONS ---
Date/Time of Note Date/Time of Note DATE: 09/13/16 TIME: 17:38 Assessment/Plan Assessment/Plan Additional Assessment/Plan 1. Acute kidney injury on chronic kidney disease stage II to III secondary to diabetic nephropathy, etiology of acute kidney injury is likely secondary to obstruction versus progression of diabetic nephropathy, versus prerenal azotemia. 2. Possible chronic kidney disease stage III secondary to diabetic nephropathy. 3. History of hypertension. 4. History of type 2 diabetes mellitus. 5. Metabolic acidosis likely secondary to chronic kidney disease. 6. Acute hyperkalemia secondary to worsening renal failure along with acute kidney injury. 7. Accelerated hypertension. PLAN: BUN/Cr slightly improved ,K normal diet has been changed to renal diet Calcium acetate 667mg TID with meal Renal US showed medical renal disease will follow up follow up missael rodriguez in clinic in 1-2 week after discharge Consultation Date/Type/Reason Admit Date/Time Sep 10, 2016 at 20:01 Initial Consult Date Aug Type of Consultation: NEPHROLOGY Referring Provider: NATALIA SIMMONS MD 24 HR Interval Summary Free Text/Dictation pt seen in AM, was doing better ,pt creatinin slighty imporved to 2.98, BP stable Exam/Review of Systems Vital Signs Vitals Vital Signs Date Time Temp Pulse Resp B/P Pulse Ox O2 Delivery O2 Flow Rate FiO2 09/13/16 12:30 97.5 56 18 184/77 98 Room Air 09/10/16 17:57 2 Intake and Output 09/12/16 09/12/16 09/13/16 15:00 23:00 07:00 Intake Total 800 ml Output Total 1200 ml Balance -400 ml Exam GENERAL: Awake, alert, in no distress. HEENT: Normal. Oropharynx clear. NECK: Supple, no JVD, no lymphadenopathy. LUNGS: Clear to auscultation. No crackles, no wheezes. HEART: S1, S2, with regular rhythm, no murmur. ABDOMEN: Soft, nontender, nondistended. Bowel sounds are present. EXTREMITIES: No clubbing, cyanosis, or edema. NEUROLOGICAL: Nonfocal, intact. PSYCHIATRIC: Appropriate affect and mood. Results Result Diagram: 09/13/16 0610 09/13/16 0610 Results 24 hrs Laboratory Tests Test 09/12/16 21:06 09/13/16 06:10 09/13/16 07:52 09/13/16 12:21 Bedside Glucose 176 160 257 H Albumin 3.3 Anion Gap 18 H Basophils # 0.0 Basophils % 0.3 Blood Urea Nitrogen 57 H Calcium Level 8.3 L Carbon Dioxide Level 19 L Chloride Level 108 Creatinine 2.98 H Eosinophils # 0.2 Eosinophils % 4.0 Glucose Level 181 Hematocrit 25.6 L Hemoglobin 8.4 L Lymphocytes # 1.3 Lymphocytes % 32.2 Mean Corpuscular Hemoglobin 30.3 Mean Corpuscular Hemoglobin Concent 32.8 Mean Corpuscular Volume 92.4 Mean Platelet Volume 11.2 H Monocytes # 0.2 L Monocytes % 5.0 Neutrophils # 2.3 Neutrophils % 58.2 Nucleated Red Blood Cells # 0.0 Nucleated Red Blood Cells % 0.0 Phosphorus Level 5.0 H Platelet Count 118 L Potassium Level 4.0 Red Blood Count 2.77 L Red Cell Distribution Width 13.3 Sodium Level 141 White Blood Count 4.0 L PEDRO MARQUES MD Sep 13, 2016 17:39
--- NOTE | 2016-09-13 23:48 | DS ---
DATE OF ADMISSION: 09/10/2016 DATE OF DISCHARGE: 09/13/2016 [employer] DEVELOPER: Dr. Kanchan Foster DIAGNOSES: 1. Hyperkalemia secondary to acute on chronic renal insufficiency, resolved. 2. Acute on chronic renal insufficiency, likely diabetic nephropathy. Nephrology was consulted. I mproved status post IV fluid. 3. Diabetic nephropathy. The patient has been started on Januvia. Not a candidate for metformin s econdary to renal insufficiency. Continue low-carb diet. 4. Essential hypertension, well controlled on Coreg. Also patient has been started on Norvasc. No t a candidate for ANEUDY inhibitor or Lasix secondary to renal insufficiency. 5. Diabetes mellitus type 2 with hemoglobin A1c 7.1. The patient has been started on Januvia. 6. Anemia of chronic disease, normocytic. 7. 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 Follow up with Nephrology as outpatient. MEDICATIONS: 1. Amlodipine 5 mg. 2. Aspirin 81 mg. 3. Calcium acetate 667 mg. 4. Colace 100 mg. 5. Januvia 50 mg. 6. Coreg 6.25 mg. At this time, we will hold Losartan secondary to hyperkalemia. ALLERGIES: NO KNOWN DRUG ALLERGIES. HOSPITAL COURSE: This is a 65-year-old female, past medical history of essential hypertension, ____ x2 who presents to [facility] secondary to was found to have elevated potassium l evel/hyperkalemia on the blood test. The patient went to see her primary care physician at [facility] physician and laboratory study completed. Study showed the patient was having elevated pot assium. Therefore, she was instructed to come to emergency room at [facility]. S he denied having fever, chills, weight gain, weight loss, chest pain, shortness of breath. Her pota ssium at time of admission was 6.1. Nephrology was consulted. The patient was treated with Kayexal ate, IV fluid, pain medication. The patient was started on IV fluid. The patient's lipid panel rio wed triglyceride 94, total cholesterol 153, LDL 59, HDL 75. TSH 1.450. The patient's hemoglobin A1 c was found to be 7.1. The patient was placed on low-carb diet and insulin sliding scale. She was placed on Onglyza during the course of hospitalization. For her blood pressure, the patient's ANEUDY i nhibitor was placed on hold secondary to hyperkalemia, was continued on Coreg. Her blood pressure i s still found to be minimally elevated at 160/70. Therefore, at this time I have started patient on Norvasc 5 mg. I have spoken to her primary care physician that in case if her blood pressure roland nued to increase, the Norvasc can be increased to 10, or she can just change to nifedipine. Also feng ve spoken to the Nephrology which is on this case, Dr. Kanchan Foster, regarding the patient's blood press ure medication Losartan. At this time, it was agreed the patient's losartan should be held secondar y to acute on chronic renal insufficiency and hyperkalemia. At this time, patient is medically stab le to be discharged home with close followup with primary care physician and hypo splasher as outpati ent. LABORATORIES: Sodium 141, potassium 4.0, chloride 108, bicarbonate 19, BUN 57, creatinine 2.98, glu cose 181, phosphorus 5.0. LFTs are within normal limits. Triglycerides 94, total cholesterol 153, HDL 75, LDL 59. WBC 4.0, hemoglobin 8.4, hematocrit 25.6, MCV ____ 2.4, platelets 118. CONDITION: Stable. Dictated By: SRI MOREAU/TAB Conf#: [id number] DID#: [id number]
== END 2016-09-13 15:00 | disposition home or self-care (01) | DRG 684 ==
LOC: E/R 16:24 → TEL 20:01
PROVIDERS: ADMIT Family Medicine; ATTEND Family Medicine
DX: N17.9 Acute kidney failure, unspecified (principal); E11.22 Type 2 diabetes mellitus with diabetic chronic kidney disease; E87.5 Hyperkalemia; I12.9 Hypertensive chronic kidney disease with stage 1 through stage 4 chronic kidney disease, or unspecified chronic kidney disease; N18.3 Chronic kidney disease, stage 3 (moderate); D63.1 Anemia in chronic kidney disease
CPT/HCPCS: 71010; 76775; 80048; 80053; 80061; 80069; 81001; 81003; 82550; 82553; 82962; 83036; 83540; 83735; 83930; 84132; 84443; 84484; 84560; 85025; 85610; 85730; 86703; 86704; 86709; 86803; 87340; 93005; 96372; 96374; 96375; J0360; J1815; J7030